=== PATIENT | male | born 1990 | race Caucasian/White ===

== ENCOUNTER 2022-03-10 10:14 | Emergency (ER) | payer OTHER, SELFPAY ==
[2022-03-10 10:16] VITALS: BP 121/80; PULSE 121; RESP 18; TEMP 36.8; O2SAT 96; BMI 23.6
--- NOTE | 2022-03-10 10:31 | EX.ED.DYSGE1 ---
HPI History of Present Illness Chief Complaint: Hyperglycemia Detail of Chief Complaint: Hyperglycemia and vomiting Informant: patient Narrative Narrative: Patient presents to the emergency department with complaint of hyperglycemia. Patient states that he woke up late for work this morning. Patient states he kind of felt out of it and did not feel well. Patient noticed that his insulin pump battery had and needed to be recharged. Patient did not check his blood sugar but gave himself 25 units of Humalog in his left leg and 15 units in his right leg. Patient drove to work and on the way to work at the stop and vomit x1. Patient was able to work for several hours. Patient felt like maybe his sugar was not coming down as he had some nausea. Patient has noticed decreased urine output today. Patient tells me normally his blood sugar is well controlled and normally under 200. On arrival in triage his blood sugar was 225. Patient's insulin pump is at home currently and believes that its likely charged at this point. He does have Humalog with him. Patient has never been admitted for DKA. Patient denies recent illness otherwise. Prior similar symptoms: No PFSH PFS Medical History (Updated 03/10/22 @ 11:[address] Johann Bradshaw, DO) Asthma Diabetes type I IgA deficiency Home Medications insulin aspart U-100 100 unit/mL subcutaneous solution (Novolog U-100 Insulin aspart) unit subcut 03/10/22 [History Last Taken Unknown] insulin detemir U-100 100 unit/mL subcutaneous solution (Levemir U-100 Insulin) 38 unit subcut PRN PRN IF INSULIN PUMP WERE TO FAIL 03/10/22 [History Last Taken Unknown] Allergy/AdvReac Type Severity Reaction Status Date / Time No Known Allergies Allergy Verified 03/10/22 10:16 Social History Smoking Status: Never smoker ROS ROS ED ROS Narrative Lightheaded feeling/not feeling well Review of Systems ROS Unobtainable: other Constitutional Constitutional ED: Reports lethargy; Denies chills, fever(s), sweats or weight loss Eyes Eyes: Denies blurry vision, change in vision or diplopia ENT ENT ED: Denies rhinorrhea or sore throat Cardiovascular Cardiovascular: Denies chest pain, orthopnea or racing heartbeat Respiratory/Chest Respiratory/Chest: Reports dyspnea and dyspnea on exertion; Denies cough, orthopnea or sputum Gastrointestinal Gastrointestinal: Reports nausea and vomiting; Denies abdominal pain or diarrhea Genitourinary Genitourinary ED: Denies dysuria, hematuria or urinary frequency Musculoskeletal Musculoskeletal: Denies arthralgias, back pain, myalgias or neck pain Integumentary Denies abscess, Abrasions or rash Neurologic Neurologic: Denies headache(s) or weakness Psychiatric Psychiatric: Denies anxiety, depression or suicidal thoughts Endocrine Endocrinology: Denies polydipsia, polyphagia or polyuria Hematologic/Lymphatic Hematologic/Lymphatic: Denies easy bleeding, easy bruising or lymphadenopathy Allergic/Immunologic Allergic/Immunologic ED: Denies mouth swelling, tongue swelling or urticaria EXAM Physical Exam Const Vital Signs: 03/10/22 10:16 Temperature 98.3 F Temperature Source Temporal Pulse Rate 121 H Respiratory Rate 18 Blood Pressure 121/80 H Blood Pressure Mean 93 Pulse Ox 96 Oxygen Delivery Method Room Air Positive well nourished and well developed General Appearance ED: well developed and NAD HEENT Reports TM's clear and moist mucous membranes normocephalic and atraumatic; Negative for trauma or tenderness Tympanic Membrane ED: Yes TM's clear Eyes PERRL and EOMs intact bilaterally General Eye ED: Negative for pale conjunctiva or scleral icterus Neck no lymphadenopathy, supple and no JVD General: Negative for tenderness Chest Wall inspection of chest normal and palpation of chest normal Chest: Negative for tenderness Resp normal respiratory effort and clear to auscultation bilaterally Effort and Inspection: Negative for respiratory distress or pain with movement Auscultation: Negative for rhonchi, wheezes or diminished lung sounds Cardio regular rate, regular rhythm, S1 normal heart sound, S2 normal heart sound and no murmurs Peripheral Pulses: pulses 2+ throughout GI normal to inspection, nondistended, normoactive bowel sounds, soft to palpation, non-tender, non-distended and no masses Back/Spine no CVA tenderness and no thoracic nor lumbar tenderness Extremity normal to inspection General Extremety ED: Negative for edema General Extremity: Negative for edema Neuro oriented x3, CN's II-XII intact bilaterally, no sensory deficits noted and gait normal Sensorium / Orientation: awake, alert, oriented to person, oriented to place and oriented to time Motor Exam: strength 5/5 throughout and strength abnormal Psych mental status grossly normal Skin no rashes or lesions noted and no wounds MDM MDM MDM Narrative Medical decision making narrative: IV line established on arrival. Patient was given a liter mostly of fluid bolus. Blood work obtained showed a normal CO2 and normal anion gap. He did have small amount of acetone in the serum and small ketones in the urine otherwise no signs of infection in the urine. Patient otherwise feeling well and has had no further vomiting. I do not believe he is in DKA. Patient will go home and get back on his insulin pump. Patient will be able to monitor his glucose. Patient advised to return if vomiting, persistent hyperglycemia, or condition should worsen anyway. Without any further treatment in the department his sugar now down to 179. Lab Data Attestation: I reviewed the patient's lab results. Labs: Laboratory Results - last 24 hr 03/10/22 03/10/22 03/10/22 10:19 10:38 10:45 WBC 8.0 RBC 5.81 Hgb 16.6 H Hct 47.4 MCV 81.6 MCH 28.6 MCHC 35.0 RDW Std Deviation 33.8 L RDW Coeff of Meme 11.6 Plt Count 379 MPV 9.1 Immature Gran % (Auto) 0.600 Neut % (Auto) 80.9 H Lymph % (Auto) 15.6 L [place] % (Auto) 2.4 Eos % (Auto) 0.1 Baso % (Auto) 0.4 Absolute Neuts (auto) 6.5 Absolute Lymphs (auto) 1.25 Nucleated RBC % 0 Sodium Potassium Chloride Carbon Dioxide Anion Gap BUN Creatinine Estim Creat Clear Calc Est GFR (MDRD) Af Amer Est GFR (MDRD) Non-Af BUN/Creatinine Ratio Glucose Calcium Urine Color Yellow Urine Clarity Sl. Cloudy Urine pH 5.0 Ur Specific [place] 1.020 Urine Protein 30 H Urine Glucose (UA) 1000 H Urine Ketones 150 A* Urine Occult Blood 25 H Urine Nitrite Negative Urine Bilirubin Negative Urine Urobilinogen Normal Ur Leukocyte Esterase Negative Urine RBC 0-5 SEEN Urine WBC 0 SEEN Ur Squamous Epith Cells 0 SEEN Urine Bacteria 0 SEEN Urine Mucus 0 SEEN Acetone Level POC Glucose 225 H 03/10/22 03/10/22 10:45 10:45 WBC RBC Hgb Hct MCV MCH MCHC RDW Std Deviation RDW Coeff of Meme Plt Count MPV Immature Gran % (Auto) Neut % (Auto) Lymph % (Auto) [place] % (Auto) Eos % (Auto) Baso % (Auto) Absolute Neuts (auto) Absolute Lymphs (auto) Nucleated RBC % Sodium 134 L Potassium 3.6 Chloride 94 L Carbon Dioxide 27.0 Anion Gap 13 BUN 31 H Creatinine 1.89 H Estim Creat Clear Calc 59.55 Est GFR (MDRD) Af Amer 54 L Est GFR (MDRD) Non-Af 45 L BUN/Creatinine Ratio 16.4 Glucose 179 H Calcium 10.6 H Urine Color Urine Clarity Urine pH Ur Specific [place] Urine Protein Urine Glucose (UA) Urine Ketones Urine Occult Blood Urine Nitrite Urine Bilirubin Urine Urobilinogen Ur Leukocyte Esterase Urine RBC Urine WBC Ur Squamous Epith Cells Urine Bacteria Urine Mucus Acetone Level SMALL H POC Glucose Discharge Plan Triage Chief Complaint: Hyperglycemia ED Provider: Johann Bradshaw Dx/Rx/DC Orders Clinical Impression: Hyperglycemia Instructions: ED Diabetic Hyperglycemia Prescriptions: No Action insulin aspart U-100 [Novolog U-100 Insulin aspart] 100 unit/mL Solution SUBCUT Rx Instructions: PUMP Levemir U-100 Insulin 100 unit/mL Solution 38 unit SUBCUT PRN PRN (Reason: IF INSULIN PUMP WERE TO FAIL) Primary Care Provider: Care Physician,Hillary Primary Referrals: NOT,DEFINED [NON-STAFF] - Activity Restrictions/Additional Instructions: See your behavioral services tech as needed if blood sugars persistently elevated. Drink lots of fluids. Disposition Disposition: Home, Self Care
[2022-03-10 10:44] LABS: Bacteria 0 SEEN /hpf (None Seen); Mucous, Urine 0 SEEN /hpf (<or=2+); Squamous Epithelial Cells - UA 0 SEEN /hpf (0-5); White Blood Cells 0 SEEN /hpf (0-5)
[2022-03-10 10:46] LABS: Color, Urine Yellow (Yellow); Glucose, Dipstick 1000 mg/dl (Normal); Leukocyte Esterase-Dipstick Negative /ul (Negative); Nitrite-Dipstick Negative (Negative); Occult Blood-Urine 25 /ul (Negative); Protein-Dipstick 30 mg/dl (Negative); Urine Bilirubin Dipstick Negative (Negative); Urine Clarity Sl. Cloudy (Clear); Urine Urobilinogen Normal (Normal)
[2022-03-10] MEDS: 0.9% Normal Saline 1,000 ML 1000 ML IV (10:48)
[2022-03-10 10:49] LABS: Ketone-Dipstick 150 mg/dl (Negative)
[2022-03-10 10:50] LABS: Absolute Lymphocyte Count 1.25 X10^3/uL (0.83-4.51); Absolute Neutrophil Count 6.5 X10^3/uL (2.0-7.7); Basophil# 0.03 X10^3/uL; Basophil% 0.4 % (0-1); Eosinophil# 0.01 X10^3/uL; Eosinophils% 0.1 % (0-5); Hematocrit 47.4 % (40-54); Hemoglobin 16.6 g/dL (13.0-16.5); Lymphocyte # 1.25 X10^3/ul (0.83-4.51); Lymphocyte % 15.6 % (19-41); Mean Corpuscular Hgb 28.6 pg (27.0-32.0); Mean Corpuscular Volume 81.6 fL (80-94); Mean Platelet Vol. 9.1 fl (6.2-12.0); Monocyte# 0.19 X10^3/uL; Monocyte% 2.4 % (0-10); NRBC Flagged by Analyzer 0 % (0-5); Neutrophil # 6.47 X10^3/uL (2.7-7.7); Neutrophil % 80.9 % (47-70); Platelet Count 379 K/mm3 (150-450); RBC Distribution Width CV 11.6 % (11.6-14.6); RBC Distribution Width SD 33.8 fl (35.1-43.9); Red Blood Count 5.81 M/mm3 (4.6-6.2)
[2022-03-10 10:51] LABS: Bedside Glucose 225 mg/dL (74-106)
[2022-03-10 10:55] LABS: Red Blood Cells-Urine 0-5 SEEN /hpf (0-5)
[2022-03-10 11:02] LABS: Anion Gap 13 (5-15); BUN 31 mg/dL (7-18); BUN/Creat Ratio 16.4 RATIO (10-20); Calcium,Total 10.6 mg/dL (8.5-10.1); Chloride 94 mmol/L (98-107); Creatinine, Serum 1.89 mg/dL (0.70-1.30); EST Glomerular Filtration Rate 45 mL/min (>60); Est Glom Filt Rate - Afr Amer 54 mL/min (>60); Estimated Creatinine Clearance 59.55 ml/min; Glucose 179 mg/dL (74-106); Potassium 3.6 mmol/L (3.5-5.1); Sodium Level 134 mmol/L (136-145)
== END 2022-03-10 11:15 | disposition home or self-care (01) ==
PROVIDERS: Emergency Provider Emergency Medicine; Visit Provider Emergency Medicine
DX: E10.65 Type 1 diabetes mellitus with hyperglycemia (principal); Z79.4 Long term (current) use of insulin; Z96.41 Presence of insulin pump (external) (internal); J45.909 Unspecified asthma, uncomplicated
CPT/HCPCS: 80048; 81001; 82009; 82962; 85025; 96360; 99283; J7030; A4216